=== PATIENT | male | born 1990 | race Two or more races ===

== ENCOUNTER 2021-03-10 20:18 | Emergency (ER) | payer SELFPAY ==
[~2021-03-10] VITALS: Ht 170.2 cm; Wt 77.0 kg
[2021-03-10 21:05] VITALS: BP 139/86
[2021-03-10] MEDS ORDERED: ONDANSETRON PF 4 MG/2 ML VIAL. IV ONE (21:15)
[2021-03-10] MEDS ORDERED: LIDO:MAALOX 1:1 20 ML SINGLE DOSE. SWSW ONE (21:15)
[2021-03-10] MEDS ORDERED: IV NORMAL SALINE 1000ML BAG 1,000 ML IV ONE (21:15)
[2021-03-10] MEDS ORDERED: FAMOTIDINE 20 MG/2 ML VIAL IVP ONE (21:15)
[2021-03-10 21:24] LABS: BASO % 0 % (0-3); EOS # 0.2 x10^3/uL (0.0-0.7); EOS % 2 % (0-3); HEMATOCRIT 48.8 % (39.0-53.0); HEMOGLOBIN 16.9 g/dL (13.0-17.5); LYMPH # 1.9 x10^3/uL (1.0-4.8); LYMPH % 19 % (24-48); MEAN CORPUSCULAR HEMOGLOBIN 31 pg (25-35); MEAN CORPUSCULAR HGB CONC 35 g/dL (31-37); MEAN CORPUSCULAR VOLUME 88 fL (79-100); MONO # 0.7 x10^3/uL (0.0-1.1); MONO % 7 % (0-9); NEUT # 6.8 x10^3/uL (1.8-7.7); NEUT % 71 % (31-73); PLATELET COUNT 250 x10^3/uL (140-400); RED BLOOD COUNT 5.54 x10^6/uL (4.30-5.70); RED CELL DISTRIBUTION WIDTH 13.4 % (11.5-14.5); WHITE BLOOD COUNT 9.7 x10^3/uL (4.0-11.0)
--- NOTE | 2021-03-10 21:27 | ED.ADGEN ---
Past Medical History Past Surgical History: No Surgical History Smoking Status: Current Every Day Smoker Alcohol Use: Heavy (Is a sixpack or more of beer a day) Drug Use: None General Adult EDM: Chief Complaint: ABDOMINAL PAIN HPI: HPI: Patient is a 30 year old male who presents emergency department with complaints of epigastric pain for the last 5 days. Patient states for the first 3 days he had diarrhea in addition to the epigastric pain. He states that yesterday he began vomiting. He states he has vomited at least 3 times in the last 24 hours. Patient states he is able to eat and drink normally even with his abdominal pain. He denies any fever, cough, shortness of breath, dysuria, hematuria, increased urinary frequency, body aches, or fatigue. Patient states he has noticed a little bit of pain in his right low back/right flank, he denies any urinary symptoms. Patient denies any blood in his emesis or his stools. He states he drinks at least 6 beers or more a day. He currently rates the pain a 10 out of 10 on the pain scale, he denies any alleviating factors, he took ibuprofen about an hour ago and that seemed to make the pain worse. Review of Systems: Review of Systems: Complete ROS is negative unless otherwise noted in HPI. Current Medications: Current Medications Medications (Trade) Dose Ordered Sig/[facility] Start Time Stop Time Status Last Admin Dose Admin Famotidine (Pepcid Vial) 20 mg 1X ONCE 03/10/21 21:15 03/10/21 21:19 DC 03/10/21 21:23 20 MG Fentanyl Citrate (Fentanyl 2ml Vial) 50 mcg 1X ONCE 03/10/21 22:15 03/10/21 22:16 DC 03/10/21 23:06 50 MCG Ketorolac Tromethamine (Toradol 15mg Vial) 15 mg 1X ONCE 03/10/21 23:00 03/10/21 23:01 DC 03/10/21 23:05 15 MG Multi-Ingredient Mouthwash/Gargle (Gi Cocktail) 20 ml 1X ONCE 03/10/21 21:15 03/10/21 21:19 DC 03/10/21 21:23 20 ML Ondansetron HCl (Zofran) 4 mg 1X ONCE 03/10/21 21:15 03/10/21 21:19 DC 03/10/21 21:23 4 MG Sodium Chloride 1,000 ml @ 1,000 mls/hr 1X ONCE 03/10/21 21:15 03/10/21 22:14 DC 03/10/21 21:22 1,000 MLS/HR Allergies: Allergies: Allergies Coded Allergies Type Severity Reaction Last Updated Verified No Known Drug Allergies 03/10/21 No Physical Exam: PE: See Above Constitutional: Well developed, well nourished, no acute distress, non-toxic appearance. [] HENT: Normocephalic, atraumatic, bilateral external ears normal, nose normal. [] Eyes: PERRLA, EOMI, conjunctiva normal, no discharge. [] Neck: Normal range of motion, no stridor. [] Cardiovascular:Heart rate regular rhythm Lungs & Thorax: Respirations even and unlabored, no retractions, no respiratory distress Abdomen: soft, epigastric tenderness to palpation otherwise soft and nontender, no palpable mass Skin: Warm, dry, no erythema, no rash. [] Extremities: No cyanosis, ROM intact, no edema. [] Neurologic: Alert and oriented X 3, no focal deficits noted. [] Psychologic: Affect normal, judgement normal, mood normal. [] Current Patient Data: Labs: Laboratory Tests Test 03/10/21 21:06 03/10/21 22:00 White Blood Count 9.7 x10^3/uL (4.0-11.0) Red Blood Count 5.54 x10^6/uL (4.30-5.70) Hemoglobin 16.9 g/dL (13.0-17.5) Hematocrit 48.8 % (39.0-53.0) Mean Corpuscular Volume 88 fL (79-100) Mean Corpuscular Hemoglobin 31 pg (25-35) Mean Corpuscular Hemoglobin Concent 35 g/dL (31-37) Red Cell Distribution Width 13.4 % (11.5-14.5) Platelet Count 250 x10^3/uL (140-400) Neutrophils (%) (Auto) 71 % (31-73) Lymphocytes (%) (Auto) 19 % (24-48) L Monocytes (%) (Auto) 7 % (0-9) Eosinophils (%) (Auto) 2 % (0-3) Basophils (%) (Auto) 0 % (0-3) Neutrophils # (Auto) 6.8 x10^3/uL (1.8-7.7) Lymphocytes # (Auto) 1.9 x10^3/uL (1.0-4.8) Monocytes # (Auto) 0.7 x10^3/uL (0.0-1.1) Eosinophils # (Auto) 0.2 x10^3/uL (0.0-0.7) Basophils # (Auto) 0.0 x10^3/uL (0.0-0.2) Sodium Level 142 mmol/L (136-145) Potassium Level 3.8 mmol/L (3.5-5.1) Chloride Level 102 mmol/L (98-107) Carbon Dioxide Level 27 mmol/L (21-32) Anion Gap 13 (6-14) Blood Urea Nitrogen 10 mg/dL (8-26) Creatinine 0.9 mg/dL (0.7-1.3) Estimated GFR (Cockcroft-Gault) 98.4 Glucose Level 118 mg/dL (70-99) H Calcium Level 9.1 mg/dL (8.5-10.1) Magnesium Level 2.4 mg/dL (1.8-2.4) Total Bilirubin 0.3 mg/dL (0.2-1.0) Direct Bilirubin 0.1 mg/dL (0.0-0.2) Aspartate Amino Transferase (AST) 26 U/L (15-37) Alanine Aminotransferase (ALT) 65 U/L (16-63) H Alkaline Phosphatase 105 U/L (46-116) Total Protein 8.0 g/dL (6.4-8.2) Albumin 4.3 g/dL (3.4-5.0) Lipase 78 U/L (73-393) Urine Collection Type Unknown Urine Color Yellow Urine Clarity Clear Urine pH 6.0 (<5.0-8.0) Urine Specific Dierks 1.025 (1.000-1.030) Urine Protein Negative mg/dL (NEG-TRACE) Urine Glucose (UA) Negative mg/dL (NEG) Urine Ketones (Stick) Trace mg/dL (NEG) Urine Blood Moderate (NEG) Urine Nitrite Negative (NEG) Urine Bilirubin Negative (NEG) Urine Urobilinogen Dipstick 1.0 mg/dL (0.2 mg/dL) Urine Leukocyte Esterase Negative (NEG) Urine RBC 11-20 /HPF (0-2) Urine WBC 1-4 /HPF (0-4) Urine Squamous Epithelial Cells Occ /LPF Urine Bacteria Few /HPF (0-FEW) Laboratory Tests 03/10/21 21:06 Laboratory Tests 03/10/21 21:06 Vital Signs: Vital Signs Date Time Temp Pulse Resp B/P (MAP) Pulse Ox O2 Delivery O2 Flow Rate FiO2 03/10/21 23:06 16 98 03/10/21 21:05 98.1 65 139/86 Room Air 98.1 EKG: EKG: [] Heart Score: C/O Chest Pain: No Radiology/Procedures: Radiology/Procedures: [facility] [address] [place] [address] IMAGING REPORT Signed PATIENT: SHARIF YOUNG ACCOUNT: [id number] : 1990 LOCATION: ER AGE: 30 SEX: M EXAM STATUS: REG ER ORD. PHYSICIAN: CHELLE QIUGLEY APRN REASON: r FLANK PAIN, HEMATURIA, N/V PROCEDURE: CT ABDOMEN PELVIS WO CONTRAST Examination: CT of the abdomen and pelvis without contrast HISTORY: History of right flank pain, hematuria COMPARISON: None TECHNIQUE: Axial CT images of the abdomen is performed without contrast. Coronal and sagittal reformats performed. Exposure: One or more of the following individualized dose reduction techniques were utilized for this examination: 1. Automated exposure control 2. Adjustment of the mA and/or kV according to patient size 3. Use of iterative reconstruction technique FINDINGS: The bibasilar lungs are clear. No evidence of free air identified in the abdomen. The evaluation of the solid organs is limited due to lack of IV contrast. The evaluation of bowel is limited due to lack of oral contrast.. The visualized non contrasted liver, spleen, adrenals grossly appears unremarkable. The gallbladder is mildly distended. The stomach is mildly distended. Questionable minimal fat stranding identified about the pancreas. The stomach is mildly distended. The small bowel is nondilated. The appendix is normal. Feces and gas identified in the colon. The urinary bladder is mildly distended. No evidence of intrarenal calculi or hydronephrosis. No evidence of lytic bony destructive lesion. IMPRESSION: 1. Questionable minimal fat stranding identified about the pancreas could be mild pancreatitis. Correlate with lab values. 2. No evidence of intrarenal calculi or hydronephrosis. Electronically signed by: Grant Rivera MD (03/10/2021 11:50 PM) [id number] DICTATED and SIGNED BY: GRANT RIVERA MD DATE: 03/10/21 [id number] [] Course & Med Decision Making: Course & Med Decision Making Pertinent Labs and Imaging studies reviewed. (See chart for details) 2255-patient is a 30-year-old male presented emergency department with com plaints of epigastric pain for 5 days. CBC is unremarkable, CMP is also unremarkable. Patient's lipase is not elevated. Patient has been given a liter normal saline, 4 mg of Zofran, GI cocktail, and 20 mg of Pepcid IV. He reported no relief from his pain after these medications however he stated his nausea was gone. Patient was given 50 mcg of fentanyl. His UA revealed 11-20 red blood cells patient did report some pain in his right flank, CT the patient's abdomen was ordered to rule out a kidney stone. Patient reported no pain relief from the fentanyl that was given. 15 mg of Toradol was ordered IV. Report was given to Dr. Baker at this time who will follow up on the CT results and make patient final disposition. [] Discussed alcohol cessation and possible early pancreatitis. Discussed liquid diet and how to progress diet as tolerated. Discussed return precautions, patient states he is understanding. Declined PAT evaluation of his alcohol use Dragon Disclaimer: Kory Disclaimer: This electronic medical record was generated, in whole or in part, using a voice recognition dictation system. Departure Departure Impression: Primary Impression: Gastritis Disposition: HOME / SELF CARE / HOMELESS Condition: STABLE Referrals: NO PCP (PCP) Patient Instructions: Acute Pancreatitis, [id number], Alcohol Problems Additional Instructions: Clear liquid diet until not having pain, advance diet as tolerated. Return if unable to tolerate p.o. or pain is uncontrolled. Scripts Hydrocodone Bit/Acetaminophen (HYDROCODONE-APAP 5-325 ) 1 Tab Tablet 1 TAB PO PRN Q6HRS PRN for PAIN for 5 Days, #15 TAB 0 Refills Prov: MAYA BAKER MD 03/11/21 Ondansetron (ONDANSETRON ODT) 4 Mg Tab.rapdis 1 TAB PO PRN Q6-8HRS, #10 TAB Prov: MAYA BAKER MD 03/11/21 CHELLE QUIGLEY APRN Mar 10, 2021 21:26 MAYA BAKER MD Mar 11, 2021 00:37
[2021-03-10 21:32] LABS: CALCIUM 9.1 mg/dL (8.5-10.1); CREATININE 0.9 mg/dL (0.7-1.3); GFR 98.4; POTASSIUM 3.8 mmol/L (3.5-5.1)
[2021-03-10 22:09] LABS: BILIRUBIN,URINE NEGATIVE (NEG); CLARITY,URINE CLEAR; COLOR,URINE YELLOW; NITRITE,URINE NEGATIVE (NEG); PROTEIN,URINE NEGATIVE (NEG-TRACE)
[2021-03-10] MEDS ORDERED: fentaNYL PF VIAL 100 MCG/2 ML VIAL IV ONE (22:15)
[2021-03-10 22:33] LABS: BACTERIA,URINE FEW /HPF (0-FEW)
[2021-03-10 22:40] LABS: ALBUMIN 4.3 g/dL (3.4-5.0); DIRECT BILIRUBIN 0.1 mg/dL (0.0-0.2); MAGNESIUM 2.4 mg/dL (1.8-2.4); TOTAL BILIRUBIN 0.3 mg/dL (0.2-1.0)
[2021-03-10] MEDS ORDERED: KETOROLAC 15 MG/ML VIAL. IVP ONE (23:00)
--- NOTE | 2021-03-10 23:52 | RAD ---
Examination: CT of the abdomen and pelvis without contrast HISTORY: History of right flank pain, hematuria COMPARISON: None TECHNIQUE: Axial CT images of the abdomen is performed without contrast. Coronal and sagittal reforma ts performed. Exposure: One or more of the following individualized dose reduction techniques were utilized for thi s examination: 1. Automated exposure control 2. Adjustment of the mA and/or kV according to patient size 3. Use of iterative reconstruction technique FINDINGS: The bibasilar lungs are clear. No evidence of free air identified in the abdomen. The evaluation of the solid organs is limited due to lack of IV contrast. The evaluation of bowel is limited due to lack of oral contrast.. The visualized noncontrasted liver, spleen, adrenals grossly a ppears unremarkable. The gallbladder is mildly distended. The stomach is mildly distended. Questionab le minimal fat stranding identified about the pancreas. The stomach is mildly distended. The small brandon wel is nondilated. The appendix is normal. Feces and gas identified in the colon. The urinary bladder is mildly distended. No evidence of intrarenal calculi or hydronephrosis. No evidence of lytic bony destructive lesion. IMPRESSION: 1. Questionable minimal fat stranding identified about the pancreas could be mild pancreatitis. Milana elate with lab values. 2. No evidence of intrarenal calculi or hydronephrosis. Electronically signed by: Grant Rivera MD (03/10/2021 11:50 PM) [id number]
[2021-03-11] MEDS ORDERED: ONDA4TAB12 PO (00:36)
[2021-03-11] MEDS ORDERED: HYDR-2761 PO (00:36)
== END 2021-03-11 00:57 | disposition home or self-care (01) ==
LOC: ER 20:18
DX: K29.70 Gastritis, unspecified, without bleeding (principal); F17.200 Nicotine dependence, unspecified, uncomplicated; F10.20 Alcohol dependence, uncomplicated; Y90.9 Presence of alcohol in blood, level not specified
CPT/HCPCS: 36415; 74176; 80048; 80076; 81001; 83690; 83735; 85025; 96361; 96374; 96375; 99284; J1885; J2405; J3010; J3490; J7030